=== PATIENT | male | born 1980 | race Caucasian/White ===

== ENCOUNTER 2021-07-18 14:15 | Emergency (ER) | payer OTHER ==
[~2021-07-18] VITALS: Ht 180.3 cm; Wt 90.9 kg
[2021-07-18] MEDS ORDERED: CYMBALTA60 MG PO (14:49)
[2021-07-18] MEDS ORDERED: SEROQUEL100 MG PO (14:49)
[2021-07-18] MEDS ORDERED: PRAZOSIN HCL5 MG PO (14:50)
[2021-07-18] MEDS ORDERED: OMNI-PAC300 MG PO (16:39)
[2021-07-18] MEDS ORDERED: BACTRIM DS1 TAB PO (16:39)
[2021-07-18 17:00] VITALS: BP 138/86
== END 2021-07-18 17:00 | disposition home or self-care (01) | DRG 605 ==
LOC: EDSEX 14:15 → ED 14:15
DX: S61.333A Puncture wound without foreign body of left middle finger with damage to nail, initial encounter (principal); W26.8XXA Contact with other sharp object(s), not elsewhere classified, initial encounter; Y93.H2 Activity, gardening and landscaping; Y92.007 Garden or yard of unspecified non-institutional (private) residence as the place of occurrence of the external cause